=== PATIENT | female | born 1950 | race Caucasian/White ===

== ENCOUNTER 2025-04-09 09:20 | Emergency (ER) | payer MEDICARE, BC ==
[2025-04-09] MEDS ORDERED: 50% Dextrose in Water 50 ML Syringe IVPUSH PRN (09:58)
[2025-04-09] MEDS: Insulin Regular, Human 100 Units/ML 10 ML Vial SUBCUT ONE (10:03)
== END 2025-04-09 10:20 | disposition home or self-care (01) ==
LOC: LB.ED 09:20
DX: E10.9 Type 1 diabetes mellitus without complications (principal); E78.00 Pure hypercholesterolemia, unspecified; I10 Essential (primary) hypertension; K21.9 Gastro-esophageal reflux disease without esophagitis; Z87.891 Personal history of nicotine dependence; Z79.4 Long term (current) use of insulin; Z88.0 Allergy status to penicillin; Z79.899 Other long term (current) drug therapy; Z79.82 Long term (current) use of aspirin
CPT/HCPCS: 82947; 99284; A9270